=== PATIENT | male | born 2000 | race Two or more races ===

== ENCOUNTER 2023-08-05 06:05 | Day surgery (SDC) | payer OTHER ==
[~2023-08-05] VITALS: Ht 182.9 cm; Wt 83.9 kg
[2023-08-05] MEDS ORDERED: POVIDONE-IODINE 118 ML BOTT TOP ONE ×2 (08:55→09:30)
[2023-08-05] MEDS ORDERED: DIBUCAINE 30 GM TUBE ONE (08:55)
[2023-08-05] MEDS ORDERED: BUPIVACAINE HCL/Mpf 0.5% 10ML VIAL ONE (08:55)
[2023-08-05] MEDS ORDERED: LIDOCAINE HCL 1% 10ML VIAL ONE (08:55)
[2023-08-05] MEDS ORDERED: HEMOSTATIC MATRIX 1 KIT KIT TOP ONE (08:55)
[2023-08-05] MEDS ORDERED: CEFTRIAXONE SODIUM 2,000 MG VIAL ONE (08:56)
[2023-08-05] MEDS ORDERED: METRONIDAZOLE/SODIUM CHLORIDE 500 MG/100 ML PIGGYBACK IV ONE ×2 (08:56→09:45)
[2023-08-05] MEDS ORDERED: LIDOCAINE HCL 1% 10ML VIAL IJ ONE (09:30)
[2023-08-05] MEDS ORDERED: BUPIVACAINE HCL 30 ML VIAL IJ ONE (09:30)
[2023-08-05] MEDS ORDERED: HYDROGEN PEROXIDE 473 ML BOTTLE TOP ONE (09:44)
[2023-08-05] MEDS ORDERED: DIBUCAINE 30 GM TUBE RECTAL ONE (09:45)
[2023-08-05] MEDS ORDERED: CEFTRIAXONE SODIUM 2,000 MG VIAL IV ONE (09:45)
[2023-08-05] MEDS ORDERED: CHLORHEXIDINE GLUCONATE 120 ML BOTTLE TOP ONE ×2 (09:58→10:00)
[2023-08-05] MEDS ORDERED: HYDROGEN PEROXIDE 118 ML SOLUTION TOP ONE (10:00)
[2023-08-05] MEDS ORDERED: METRONIDAZOLE500 MG PO (13:28)
[2023-08-05] MEDS ORDERED: HIBICLENS118 ML TOP (13:28)
[2023-08-05] MEDS ORDERED: TRAM1TAB98 PO (13:28)
[2023-08-05] MEDS ORDERED: NEURONTIN300 MG PO (13:28)
== END 2023-08-05 17:05 | disposition home or self-care (01) ==
LOC: CIR.AMB 06:05
PROVIDERS: ATTEND Surgery
DX: K60.3 Anal fistula (principal); K60.1 Chronic anal fissure; K50.113 Crohn's disease of large intestine with fistula; J45.909 Unspecified asthma, uncomplicated; K50.90 Crohn's disease, unspecified, without complications

== ENCOUNTER 2024-04-15 18:09 | Inpatient (IN) | payer OTHER ==
[~2024-04-15] VITALS: Ht 172.7 cm; Wt 68.0 kg
[~2024-04-15 18:09] MED LIST: HIBICLENS118 ML TOP; METRONIDAZOLE500 MG PO; NEURONTIN300 MG PO; TRAM1TAB98 PO
[2024-04-15] MEDS ORDERED: STELARA90 MG/1 ML SQ (18:20)
--- NOTE | 2024-04-15 18:21 | NUR ---
PTE CON REFERIDO DE DRA.MARLA DENSON PARA ADMISION PRE-OPERATORIA.
[2024-04-15] MEDS ORDERED: METRONIDAZOLE/SODIUM CHLORIDE 500 MG/100 ML PIGGYBACK IV ONE (19:15)
[2024-04-15] MEDS ORDERED: 0.9 % SODIUM CHLORIDE 1,000 ML IV ONE (19:15)
[2024-04-15] MEDS ORDERED: CIPROFLOXACIN IN 5 % DEXTROSE 400 MG/200 ML PIGGYBAG IV ONE (19:15)
[2024-04-15] MEDS ORDERED: PANTOPRAZOLE SODIUM 40 MG/VIAL VIAL IV ONE (19:15)
[2024-04-15 19:53] LABS: MEAN CELL VOLUME 87.4 fL (80.0-100.00); MEAN CORPUSCULAR HEMOGLOBIN 29.8 pg (27.00-32.0); MEAN CORPUSCULAR HGB CONC 34.1 g/dl (32.0-36.0); PLATELET COUNT 403 K/uL (150-450); RED BLOOD COUNT 4.01 M/uL (4.00-6.00)
[2024-04-15 19:59] LABS: INR 1.04; PARTIAL THROMBOPLASTIN TIME 26.1 SECONDS (22.0-34.0); PROTHROMBIN TIME 11.3 SECONDS (9.0-11.5)
--- NOTE | 2024-04-15 20:01 | NUR ---
SE EDUCA A PACIENET SOBRE ORDEN MEDICAS, SE ACLARA DUDAS POR LEONOR GUY. SE COLECTAN MUESTRAS DE LAB Y SE ADMINISTRAN MEDICAMENTOSE LALITA ORDEN MEDICA
[2024-04-15 20:04] LABS: ALBUMIN 3.5 gm/dL (3.4-5.0); ALKALINE PHOSPHATASE 61 U/L (50-136); ALT/SGPT 52 U/L (12-78); ANION GAP 5 (10.0-20.0); AST/SGOT 16 U/L (15-37); BILIRUBIN TOTAL 0.82 mg/dL (0.3-1.2); BLOOD UREA NITROGEN 12 mg/dL (7-18); BUN CREA RATIO 19 (7.0-25.0); CALCIUM 8.8 mg/dL (8.5-10.1); CARBON DIOXIDE 30 mEq/L (21-32); CHLORIDE 106 mmol/L (98-107); CREATININE SERUM 0.62 mg/dL (0.70-1.30); GFR 158.06; GLOBULINA 2.8 G/DL (2.4-3.5); GLUCOSE FASTING 99 mg/dL (65-100); OSMOLALITY SERUM 274 MOSM/KG (275-295); POTASSIUM 3.83 mEq/L (3.5-5.1); SODIUM 137 mmol/L (136-145); TOTAL PROTEIN 6.3 gm/dL (6.4-8.2)
[2024-04-15 20:13] LABS: C-REACTIVE PROTEIN < 0.29 MG/DL (0.00-0.29)
[2024-04-15 20:19] LABS: ERYTHROCYTE SEDIMENTATION RATE < 1 mm/hr
[2024-04-15 20:20] LABS: URINE APPEARANCE Clear; URINE BILIRRUBIN Negative (NEGATIVE); URINE BLOOD Negative; URINE COLOR Yellow; URINE GLUCOSE Negative (NEGATIVE); URINE KETONE Negative (NEGATIVE); URINE LEUKOCYTE Negative; URINE NITRATE Negative; URINE PROTEIN Negative (NEGATIVE)
[2024-04-15 20:27] LABS: URINE BACTERIA 13.4 uL (0.0-1933); URINE RBC 20.7 uL (0.0-20.8); URINE WBC 5.2 uL (0.0-23.2)
[2024-04-15] MEDS ORDERED: 0.9 % SODIUM CHLORIDE 1,000 ML IV SCH (20:30)
[2024-04-15 20:41] LABS: URINE CRYSTALS MODERATE /HPF; URINE EPITHELIAL CELLS 0.3 uL (0.0-38.8)
[2024-04-15] MEDS ORDERED: ONDANSETRON HCL 4 MG in 0.9 % SODIUM CHLORIDE 50 ML IV PRN (20:45)
[2024-04-15] MEDS ORDERED: METHYLPREDNISOLONE SOD SUCC 125 MG VIAL IV ONE (20:45)
[2024-04-15] MEDS ORDERED: CIPROFLOXACIN IN 5 % DEXTROSE 200 ML IV SCH (21:00)
--- NOTE | 2024-04-15 21:03 | NUR ---
LEONOR GUY INSERTA NGT EN JOSR ZHAO MEDIANTE MEDIDAS ASEPTICAS. SE CONFIRMA POSICION DEL MISMO MEDIANTE AUSCULTACION. SE CONECTA A SUCCION INTERMITENTE.
[2024-04-16 00:24] VITALS: BP 100/65; O2SAT 97
[2024-04-16] MEDS ORDERED: METRONIDAZOLE/SODIUM CHLORIDE 100 ML IV SCH (01:00)
[2024-04-16 08:00] VITALS: BP 92/56; O2SAT 100
[2024-04-16] MEDS ORDERED: FAMOTIDINE/PF 20 MG in 0.9 % SODIUM CHLORIDE 8 ML IV PUSH SCH (09:00)
[2024-04-16] MEDS ORDERED: ENOXAPARIN SODIUM 40 MG/0.4 ML SYRINGE SUBCUTANEO NR (13:45)
[2024-04-16 16:00] VITALS: BP 114/76; O2SAT 99
[2024-04-16] MEDS ORDERED: DEXTROSE 50 % IN WATER 0.5 G/ML VIAL IV STA (20:00)
[2024-04-16] MEDS ORDERED: DEXTROSE 5 %-0.45 % SOD CHLORD 1,000 ML IV SCH (20:00)
[2024-04-16] MEDS ORDERED: DEXTROSE 50 % IN WATER 0.5 G/ML DISP.SYRIN IV PRN (20:15)
[2024-04-16] MEDS ORDERED: INSULIN LISPRO 1,000 UNIT/10 ML UNITS SUBCUTANEO PRN (20:15)
[2024-04-17 00:53] VITALS: BP 108/66; O2SAT 96
[2024-04-17 08:00] LABS: HEMATOCRIT 37.4 % (39.0-48.0); HEMOGLOBIN 12.6 g/dL (13-16.00); MEAN CELL VOLUME 89.8 fL (80.0-100.00); MEAN CORPUSCULAR HEMOGLOBIN 30.2 pg (27.00-32.0); MEAN CORPUSCULAR HGB CONC 33.6 g/dl (32.0-36.0); PLATELET COUNT 376 K/uL (150-450); RED BLOOD COUNT 4.16 M/uL (4.00-6.00); RED CELL DISTRIBUTION WIDTH 15.2 % (11.5-14.5)
[2024-04-17 08:23] LABS: ALBUMIN 3.3 gm/dL (3.4-5.0); CALCIUM 8.8 mg/dL (8.5-10.1); CREATININE SERUM 0.66 mg/dL (0.70-1.30); GFR 147.06; MAGNESIUM 2.1 mg/dL (1.8-2.4); PHOSPHOROUS 4.8 mg/dL (2.5-4.9); POTASSIUM 3.91 mEq/L (3.5-5.1)
[2024-04-17] MEDS ORDERED: ENOXAPARIN SODIUM 40 MG/0.4 ML SYRINGE SUBCUTANEO SCH (09:00)
[2024-04-17] MEDS ORDERED: SOD FERRIC GLUC COMPLX/SUCROSE 62.5 MG in 0.9 % SODIUM CHLORIDE 50 ML IV SCH (09:00)
[2024-04-17] MEDS ORDERED: DEXTROSE 5 % IN WATER 1,000 ML IV SCH (12:45)
[2024-04-17 14:38] VITALS: BP 106/63; O2SAT 99
[2024-04-17 16:00] VITALS: BP 115/78; O2SAT 99
[2024-04-17] MEDS ORDERED: AA 5 % NO.6/DEXTROSE 15 % 2,000 ML IV SCH (17:00)
[2024-04-17] MEDS ORDERED: PHENOL 177 ML BOTTLE MM SCH (19:13)
[2024-04-18 00:16] VITALS: BP 106/66; O2SAT 99
[2024-04-18 08:00] VITALS: BP 113/69; O2SAT 97
[2024-04-18 17:05] VITALS: BP 119/77; O2SAT 100
[2024-04-19 00:13] VITALS: BP 100/62; O2SAT 97
[2024-04-19 08:00] VITALS: BP 103/62; O2SAT 99
[2024-04-19 13:53] LABS: HEMATOCRIT 37.3 % (39.0-48.0); HEMOGLOBIN 12.5 g/dL (13-16.00); MEAN CELL VOLUME 90.4 fL (80.0-100.00); MEAN CORPUSCULAR HEMOGLOBIN 30.4 pg (27.00-32.0); MEAN CORPUSCULAR HGB CONC 33.6 g/dl (32.0-36.0); PLATELET COUNT 330 K/uL (150-450); RED BLOOD COUNT 4.13 M/uL (4.00-6.00); RED CELL DISTRIBUTION WIDTH 15.4 % (11.5-14.5)
[2024-04-19 14:06] LABS: INR 1.12; PARTIAL THROMBOPLASTIN TIME 33.6 SECONDS (22.0-34.0); PROTHROMBIN TIME 12.1 SECONDS (9.0-11.5)
[2024-04-19 14:12] LABS: CALCIUM 8.9 mg/dL (8.5-10.1); CREATININE SERUM 0.56 mg/dL (0.70-1.30); GFR 177.76; POTASSIUM 4.58 mEq/L (3.5-5.1)
[2024-04-19 16:57] VITALS: BP 97/63; O2SAT 98
[2024-04-20] MEDS ORDERED: METRONIDAZOLE/SODIUM CHLORIDE 200 ML IV ONE
[2024-04-20 00:09] VITALS: BP 105/56; O2SAT 98
[2024-04-20 08:00] VITALS: BP 109/57; O2SAT 100
[2024-04-20] MEDS ORDERED: CEFTRIAXONE SODIUM 1,000 MG in 0.9 % SODIUM CHLORIDE 50 ML IV SCH (10:00)
[2024-04-20] MEDS ORDERED: BUPIVACAINE HCL/PF 0.25% 30ML VIAL InF ONE (11:15)
[2024-04-20] MEDS ORDERED: LIDOCAINE HCL 1%/EPINEPHRINE 20ML VIAL IJ ONE (11:30)
[2024-04-20] MEDS ORDERED: SUGAMMADEX SODIUM 200 MG/2 ML VIAL IV ONE (12:30)
[2024-04-20] MEDS ORDERED: MORPHINE SULFATE 4 MG/ML CARTRIDGE IV PRN (13:00)
[2024-04-20] MEDS ORDERED: MORPHINE SULFATE 4 MG/ML VIAL IV ONE ×2 (13:00→13:30)
[2024-04-20] MEDS ORDERED: DEXTROSE 50 % IN WATER 0.5 G/ML DISP.SYRIN IV PRN (13:00)
[2024-04-20] MEDS ORDERED: OxyCODONE HCL 5 MG TABLET (ROXICODONE) PO PRN (13:00)
[2024-04-20] MEDS ORDERED: HYOSCYAMINE SULFATE 0.125 MG TAB.SUBL SL SCH (13:00)
[2024-04-20] MEDS ORDERED: SIMETHICONE 125 MG CAPSULE PO SCH (13:00)
[2024-04-20] MEDS ORDERED: ACETAMINOPHEN 500 MG GEL..CAP PO SCH (14:00)
[2024-04-20 14:32] VITALS: BP 120/71; O2SAT 100
[2024-04-20] MEDS ORDERED: MEPERIDINE HCL/PF 50 MG/ML VIAL IV ONE (15:45)
[2024-04-20 16:28] VITALS: BP 113/67; O2SAT 100
[2024-04-20] MEDS ORDERED: METOCLOPRAMIDE HCL 5 MG/ML VIAL IV SCH (17:00)
[2024-04-20] MEDS ORDERED: FAMOTIDINE/PF 20 MG/2 ML VIAL IV PUSH SCH (21:00)
[2024-04-20] MEDS ORDERED: KETOROLAC TROMETHAMINE 30 MG VIAL IV ONE (21:45)
[2024-04-21] MEDS ORDERED: GABAPENTIN 300 MG CAPSULE PO SCH (05:00)
[2024-04-21 08:36] VITALS: BP 97/55; O2SAT 96
[2024-04-21] MEDS ORDERED: LACTOBACILLUS ACIDOPHILUS 1 CAP CAP PO SCH (09:00)
[2024-04-21 09:50] LABS: HEMATOCRIT 30.7 % (39.0-48.0); HEMOGLOBIN 10.8 g/dL (13-16.00); MEAN CELL VOLUME 90.4 fL (80.0-100.00); MEAN CORPUSCULAR HEMOGLOBIN 31.8 pg (27.00-32.0); MEAN CORPUSCULAR HGB CONC 35.2 g/dl (32.0-36.0); PLATELET COUNT 256 K/uL (150-450); RED CELL DISTRIBUTION WIDTH 15.4 % (11.5-14.5)
[2024-04-21 10:28] LABS: CALCIUM 8.5 mg/dL (8.5-10.1); CREATININE SERUM 0.64 mg/dL (0.70-1.30); GFR 152.38; MAGNESIUM 1.8 mg/dL (1.8-2.4); PHOSPHOROUS 3.2 mg/dL (2.5-4.9); POTASSIUM 3.96 mEq/L (3.5-5.1)
[2024-04-21 16:07] VITALS: BP 102/66; O2SAT 95
[2024-04-21] MEDS ORDERED: ENOXAPARIN SODIUM 40 MG/0.4 ML SYRINGE SUBCUTANEO SCH (17:00)
[2024-04-22 00:30] VITALS: BP 92/54; O2SAT 100
[2024-04-22 08:37] VITALS: BP 91/57; O2SAT 98
[2024-04-22] MEDS ORDERED: ENOXAPARIN SODIUM 40 MG/0.4 ML SYRINGE SUBCUTANEO SCH (09:00)
[2024-04-22 16:24] VITALS: BP 103/63; O2SAT 98
[2024-04-23] VITALS: BP 95/56; O2SAT 98
[2024-04-23 07:54] LABS: CALCIUM 8.3 mg/dL (8.5-10.1); CREATININE SERUM 0.56 mg/dL (0.70-1.30); GFR 177.76; POTASSIUM 3.7 mEq/L (3.5-5.1)
[2024-04-23 08:26] VITALS: BP 94/59; O2SAT 98
[2024-04-23 16:00] VITALS: BP 130/76; O2SAT 96
[2024-04-24] VITALS: BP 90/50; O2SAT 96
[2024-04-24 08:40] VITALS: BP 92/55; O2SAT 98
[2024-04-24 16:00] VITALS: BP 94/58; O2SAT 98
[2024-04-24] MEDS ORDERED: DIPHENHYDRAMINE HCL 50 MG/ML VIAL 1ML IV STA (18:45)
[2024-04-25] VITALS: BP 98/58; O2SAT 98
[2024-04-25 06:36] LABS: HEMATOCRIT 29.6 % (39.0-48.0); HEMOGLOBIN 10.3 g/dL (13-16.00); MEAN CELL VOLUME 90.6 fL (80.0-100.00); MEAN CORPUSCULAR HEMOGLOBIN 31.5 pg (27.00-32.0); MEAN CORPUSCULAR HGB CONC 34.7 g/dl (32.0-36.0); PLATELET COUNT 212 K/uL (150-450); RED BLOOD COUNT 3.27 M/uL (4.00-6.00); RED CELL DISTRIBUTION WIDTH 15.8 % (11.5-14.5)
[2024-04-25 07:03] LABS: INR 1.13; PARTIAL THROMBOPLASTIN TIME 29.6 SECONDS (22.0-34.0); PROTHROMBIN TIME 12.2 SECONDS (9.0-11.5)
[2024-04-25 07:11] LABS: CALCIUM 8.5 mg/dL (8.5-10.1); CREATININE SERUM 0.53 mg/dL (0.70-1.30); GFR 189.43; MAGNESIUM 1.7 mg/dL (1.8-2.4); POTASSIUM 3.5 mEq/L (3.5-5.1)
[2024-04-25 08:00] VITALS: BP 96/51; O2SAT 98
[2024-04-25 08:14] LABS: UREA CLEARANCE 56.7 ML/MIN
[2024-04-25 16:19] VITALS: BP 102/61; O2SAT 97
[2024-04-25] MEDS ORDERED: MAGNESIUM HYDROXIDE 400 MG/5 ML ML PO ONE (20:00)
[2024-04-26] VITALS: BP 101/57; O2SAT 99
[2024-04-26 08:46] VITALS: BP 106/60; O2SAT 97
[2024-04-26] MEDS ORDERED: LACTULOSE 10 G/15 ML ML PO ONE (11:45)
[2024-04-26 16:00] VITALS: BP 97/58; O2SAT 100
[2024-04-27 00:45] VITALS: BP 106/61; O2SAT 98
[2024-04-27 08:43] VITALS: BP 92/62; O2SAT 98
[2024-04-27 16:19] VITALS: BP 106/65; O2SAT 100
[2024-04-27] MEDS ORDERED: POLYETHYLENE GLYCOL 3350 17 GM BLIST.PACK PO SCH (17:00)
[2024-04-28 00:37] VITALS: BP 110/55; O2SAT 100
[2024-04-28 08:40] VITALS: BP 98/62; O2SAT 98
[2024-04-28] MEDS ORDERED: LACTULOSE 20 G/30 ML BLIST.PACK PO NR (09:00)
[2024-04-28 16:00] VITALS: BP 101/62; O2SAT 98
[2024-04-28] MEDS ORDERED: GAS RELIEF125 MG PO (19:04)
[2024-04-28] MEDS ORDERED: INTESTINEX680 M1 PO (19:04)
[2024-04-28] MEDS ORDERED: LEVSIN/SL0.125 MG SL (19:04)
== END 2024-04-28 21:24 | disposition home or self-care (01) | DRG 331 ==
LOC: ER 18:12 → SURH 21:03
PROVIDERS: General Practice; Internal Medicine; Surgery; ADMIT Surgery; ATTEND Surgery
PROC: 3E0336Z Introduction of Nutritional Substance into Peripheral Vein, Percutaneous Approach (ICD-10-PCS; 2024-04-16)
PROC: 05H933Z Insertion of Infusion Device into Right Brachial Vein, Percutaneous Approach (ICD-10-PCS; 2024-04-16)
PROC: 0DT84ZZ Resection of Small Intestine, Percutaneous Endoscopic Approach (ICD-10-PCS; principal; 2024-04-21)
PROC: 0DTJ4ZZ Resection of Appendix, Percutaneous Endoscopic Approach (ICD-10-PCS; 2024-04-21)
DX: K50.812 Crohn's disease of both small and large intestine with intestinal obstruction (principal); K50.813 Crohn's disease of both small and large intestine with fistula; K50.818 Crohn's disease of both small and large intestine with other complication; R63.4 Abnormal weight loss; J45.20 Mild intermittent asthma, uncomplicated; D64.9 Anemia, unspecified; K52.9 Noninfective gastroenteritis and colitis, unspecified